=== PATIENT | male | born 1975 | race African-American/Black ===

== ENCOUNTER 2019-01-21 07:30 | Emergency (ER) | payer BC ==
[~2019-01-21] VITALS: Ht 190.5 cm; Wt 96.0 kg
[~2019-01-21 07:30] MED LIST: LORTAB 5/3255 MG PO
[2019-01-21] MEDS ORDERED: STERAPRED DS10 MG PO (07:57)
[2019-01-21 08:00] VITALS: BP 140/94
== END 2019-01-21 08:29 | disposition home or self-care (01) | DRG 607 ==
LOC: ED 07:30
DX: L25.9 Unspecified contact dermatitis, unspecified cause (principal)